=== PATIENT | male | born 1995 | race Caucasian/White ===

== ENCOUNTER 2017-11-17 10:02 | Emergency (ER) | payer SELFPAY ==
[~2017-11-17] VITALS: Ht 170.2 cm; Wt 96.9 kg
[2017-11-17] MEDS ORDERED: RECTICARE30 GM TP (10:31)
[2017-11-17] MEDS ORDERED: COLACE100 MG PO (10:45)
[2017-11-17] MEDS ORDERED: IBUPROFEN600 MG PO (10:46)
[2017-11-17 11:17] VITALS: BP 126/70
== END 2017-11-17 11:18 | disposition home or self-care (01) ==
LOC: EME 10:02
DX: K60.2 Anal fissure, unspecified (principal); Z98.890 Other specified postprocedural states
CPT/HCPCS: 99281; 99283